=== PATIENT | male | born 1980 | race Caucasian/White ===

== ENCOUNTER 2017-01-01 02:00 | Observation (INO) | payer SELFPAY ==
[~2017-01-01] VITALS: Ht 182.9 cm; Wt 112.1 kg
[2017-01-01] VITALS (8 sets, daily range): BP systolic 128–160; BP diastolic 61–96; PULSE 74–104; RESP 16–24; O2SAT 95–98
[2017-01-01 02:46] LABS: BASOPHILS % (AUTO) 0.2 % (0-3); EOSINOPHILS % (AUTO) 2.4 % (0-5); MONOCYTES % (AUTO) 7.8 % (4-12); Mean Corpuscular Hemoglobin 27.1 pg (27.0-35.0); NEUTROPHILS % (AUTO) 76.3 % (40-74); Platelet Count 257 bil/L (150-400)
--- NOTE | 2017-01-01 02:48 | ED.REPORT ---
HPI-Facial Injury Date of Service Jan 01, 2017 ED Provider: Brian Holguin MD A 36 year old male with no pertinent medical history presents to the ED complaining of facial pain and swelling. The pt popped a pimple three days ago and the swelling began after this. Per pt's , the pt started a new job recently which has caused his hands to frequently be dirty. She is concerned that his face may be infected because of contact with his hands, and states that the swelling had worsened significantly when he returned from work yesterday. He became lethargic later in the evening. The pt denies any history of MRSA. Nursing Notes Stated Complaint: FACIAL INFECTION Chief Complaint: Skin Rash/Abscess Nursing Notes Reviewed: Yes Allergies: Coded Allergies: No Known Allergies (Unverified , 01/01/17) No Active Prescriptions or Reported Meds General Time Seen by Provider: 02:46 Chief Complaint Other (Facial swelling) Hx Obtained From: Patient, Spouse Arrived By: Walk-in Onset Occurred: 3 days ago Symptom Duration: Since onset Progression Since Onset: Gradually worsening Recent Healthcare: No recent doctor visit, No recent hospitalization Similar Sx Previous: No Past Medical History Past Medical History none reported Past Surgical History left thumb Smoking History Current Every Day Smoker Social History Drug Use: THC Other Social History: Good social support Ambulatory Status Independent Review of Systems Review of Systems Note: facial pain Constitutional: Reports: Lethargy, Denies: Fever Musculoskeletal: Denies: Back pain Skin: Reports Swelling Complete sys rev & neg: except as marked. Respiratory: Denies: Non-productive cough Cardiovascular: Denies: Chest pain GI: Denies: Abdominal pain Physical Exam Initial Vital Signs Vital Signs (First) Date Time Temp Pulse Resp B/P Pulse Ox O2 Delivery O2 Flow Rate FiO2 01/01/17 02:04 37.2 82 16 154/93 95 Room Air Initial VS: Reviewed Head / Eyes: Atraumatic, Normocephalic massively swollen upper lip with crusted, purulent lesion swollen upper fact and jaw ENT: Atraumatic, Airway patent, Mucous membranes moist Neck: Atraumatic, Supple, Full range of motion Neurologic: No motor deficits, No sensory deficits General/Constitutional: Awake lethargic but able to be aroused Respiratory / Chest: Atraumatic, Breath sounds NL, Breath sounds = bilat, No respiratory distress Cardiovascular: Heart rate NL, Regular rhythm, Heart sounds NL Skin: Warm, Dry Abdomen: Atraumatic, Soft, Non-tender Back: Atraumatic, Full range of motion Upper Extremity / MS: Atraumatic, Full range of motion Lower Extremity / Pelvis / MS: Atraumatic, Full range of motion Psychiatric: Mood NL Interpretation & Diagnostics Interpretation & Diagnostics: CT Maxillofacial: FINDINGS: Soft tissue swelling of the upper lip with timy 5-6 mm fluid collections which could represent small pus pockets. Lab Results Interpretation Result Diagram: 01/01/17 0230 01/01/17 0230 Test 01/01/17 02:30 01/01/17 04:25 White Blood Count 10.5th/mm3 (3.8-10.1) Red Blood Count 5.20mil/mm3 (4.40-5.80) Hemoglobin 14.1g/dL (13.8-17.2) Hematocrit 42.1% (41.0-50.0) Mean Corpuscular Volume 81.0fL (81-100) Mean Corpuscular Hemoglobin 27.1pg (27.0-35.0) Mean Corpuscular Hemoglobin Concent 33.5% (32.0-37.0) Red Cell Distribution Width 13.0% (12.3-15.4) Platelet Count 257bil/L (150-400) Neutrophils (%) (Auto) 76.3% (40-74) Lymphocytes (%) (Auto) 13.2% (14-46) Monocytes (%) (Auto) 7.8% (4-12) Eosinophils (%) (Auto) 2.4% (0-5) Basophils (%) (Auto) 0.2% (0-3) Erythrocyte Sedimentation Rate 29mm/hr (0-15) Hold Purple Top Tube Received (Received) Prothrombin Time 11.4sec (8.1-12.5) Prothromb Time International Ratio 1.06ratio Activated Partial Thromboplast Time 37.3sec (22.8-33.0) Hold Blue Top Tube Received (Received) Sodium Level 137mEq/L (134-144) Potassium Level 3.9mEq/L (3.5-5.2) Chloride Level 99mEq/L (97-108) Carbon Dioxide Level 25mmol/L (18-29) Blood Urea Nitrogen 8mg/dL (6-20) Creatinine 0.61mg/dL (0.76-1.27) Estimat Glomerular Filtration Rate 159mL/min (>59) Glucose Level 133mg/dL (60-99) Lactic Acid Level 0.8mmol/L (0.4-2.0) Calcium Level 9.5mg/dL (8.5-10.1) Phosphorus Level 4.0mg/dL (2.5-4.9) Magnesium Level 1.9mg/dL (1.6-2.6) Total Bilirubin 0.7mg/dL (0.0-1.2) Aspartate Amino Transf (AST/SGOT) 16U/L (0-50) Alanine Aminotransferase (ALT/SGPT) 17U/L (0-44) Alkaline Phosphatase 79U/L (25-150) Troponin T 0.010ug/L (0.0-0.011) Pro-B-Type Natriuretic Peptide 8.03pg/mL (0-86) Total Protein 7.4g/dL (6.4-8.4) Albumin 4.2g/dL (3.4-5.0) Lipase 17U/L (13-60) Procalcitonin 0.05ng/mL (0.00-0.08) Hold [place] Top Tube Received (Received) Hold [place] Top Tube Received (Received) ECG Interpretation ECG Interpretation: normal sinus rhythm with a rate of 81 Time: 03:15 Interpreted by: ED physician X-Ray Chest Interpretation Chest Xray Interpretation: no acute findings Interpretation / Wet Read by: Wet read ED physician CT Head Interpretation CONCLUSION: Normal except for some mucoperiosteal thickening in the right ethmoids. Re-Eval/Medical Decision Med Decision/Clinical Course Med Decision/Clinical Course: 36-year-old presents with rapidly progressive facial swelling after picking up pimple on his upper lip. Significant facial swelling but no airway compromise noted. CT of the soft tissue of his face shows very small fluid collections in the area of the upper lip, possibly small abscesses. He is begun with vancomycin, meropenem, and clindamycin. Admitted to medicine service. Source of Hx: Old records Re-Evaluation/Progress : Time of Eval: 02:46 Re-Evaluation/Progress Note: Pt informed of the need for admission during the initial interview. The pt understands and agrees with the plan. All questions are addressed at this time. Consultation : Referral / Consult Name: Lizzie Hinds DO Consulted With: Hospitalist Call Returned at: 04:37 Patient Case Coordinator: Agrees with eval, Agrees with plan, Accepts admit Note: Spoke with Dr. Hinds, hospitalist, regarding pt's case. Dr. Hinds agrees with the evaluation and agrees to admit the pt. Counseled Regarding: Diagnosis, Lab results, Need for admission Discharge & Departure Impression: Primary Impression: Facial cellulitis Additional Impression: Abscess Disposition: ADMITTED TO HOSPITAL Discharge Condition All VS Reviewed: Yes Condition: Stable Referrals: Sae Gilbert MD (PCP) Hung Attestation Portions of this note were transcribed by Ki Vasquez. I, Dr. Holguin personally performed the history, physical exam and medical decision-making; I reviewed and confirmed the accuracy of the information in the transcribed note. Signed by: Hung Grady, 01/01/2017 and 0328. copies to: Sae Gilbert MD, Christopher W MD Jan 01, 2017 02:48 KI VASQUEZ Jan 01, 2017 03:24
[2017-01-01] MEDS ORDERED: 0.9% Sodium Chloride 1,000 ML IV ONE (02:58)
[2017-01-01] MEDS ORDERED: Meropenem Inj 1,000 MG in 0.9% Sodium Chloride 100 ML IV ONE (03:00)
[2017-01-01] MEDS ORDERED: Vancomycin Dose per Pharmacist XX ONE (03:00)
[2017-01-01] MEDS ORDERED: Clindamycin Inj 900 MG in IV Premix 1 EACH IV ONE (03:00)
[2017-01-01 03:19] LABS: INR 1.06 ratio
[2017-01-01 03:33] LABS: TROPONIN T 0.01 ug/L (0.0-0.011)
[2017-01-01 03:44] LABS: Magnesium 1.9 mg/dL (1.6-2.6)
[2017-01-01] MEDS ORDERED: Vancomycin Inj 2,000 MG in 0.9% Sodium Chloride 500 ML IV ONE (04:00)
[2017-01-01] MEDS ORDERED: Polyethylene Glycol (PEG) 17 Gm Powder PO PRN (05:05)
[2017-01-01] MEDS ORDERED: Alum-Mag Hydrox-Simeth 30 mL Suspension PO PRN (05:05)
[2017-01-01] MEDS ORDERED: Ondansetron 2 mg/mL 2 mL Inj IVPUSH PRN (05:05)
--- NOTE | 2017-01-01 06:15 | NUR ---
Admit Note Pt. arrived on floor at 0545. Pt. is lethargic, but responds to voice. Pt's peripheral IV is intact and patent. Significant other by bedside.
--- NOTE | 2017-01-01 06:59 | PCM.HPMED ---
Subjective Date of Service Jan 01, 2017 Primary Provider: Admitting Physician: Lizzie Hinds DO Primary Care Physician: Sae Gilbert MD Attending Physician: Lizzie Hinds DO Admit Status: From the Emergency Department Chief Complaint: Facial swelling History of Present Illness: 36-year-old male with no significant past medical history presents to the emergency room with upper lip redness, swelling, and malaise. Patient reports having lesion on his lip 3 days ago, likely a pimple, it began swelling after that time and acutely worsened the day before admission. He began feeling chills and very hot in the emergency department. His temperature measured to be 37.2 at that time. He reports no associated symptoms or pain. Patient answering questions appropriately. 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 In the emergency department patient found to be very somnolent, CT head preliminary read shows normal with mucoperiosteal thickening in the right ethmoid, chest x-ray preliminary read shows no acute findings. CT maxillofacial shows soft tissue swelling of the upper lip with tiny 5-6 mm fluid collections which could represent small pus pocket. Official reads pending. Review of Systems: A comprehensive review of systems was conducted with the patient and found to be negative except as above in the History of Present Illness. Allergies Coded Allergies: No Known Allergies (Unverified , 01/01/17) Home Medications None PMH Thumb infection 2013 Surgical History Foreign body removal from thumb Family History Patient reports no family history of diabetes, heart disease, or cancer Social History Hx Alcohol Use: No Hx Substance Use: Yes ([facility]) Hx Tobacco Use: Yes Smoking Status: Current Every Day Smoker Living Arrangement: with Family Exam Vital Signs Vital Sign - Last Date Time Temp Pulse Resp B/P Pulse Ox O2 Delivery O2 Flow Rate FiO2 01/01/17 02:04 37.2 82 16 154/93 95 Room Air Exam General: Somnolent, no acute distress, well-developed, well-nourished, appropriately interactive HEENT: Erythematous swollen upper lip with white crusted lesion just left of midline. External ears without defect. Patient resistant to eye opening, thickened periorbital skin. Anicteric sclerae, moist conjunctivae, and no lid lag. Patient has difficulty opening mouth fully, moist mucosa identified. Neck: Supple with full range of motion. No lymphadenopathy or thyromegaly. Cardiovascular: Regular rate and rhythm with no murmurs, rubs, or gallops appreciated Pulmonary: Clear to auscultation bilaterally with no crackles, wheezes, or rhonchi. Normal respiratory effort with no use of accessory muscles. Abdomen: Bowel tones present. Soft, nontender, nondistended. No hepatosplenomegaly or masses appreciated. Extremities: No clubbing, cyanosis, edema, or lymphadenopathy appreciated. Skin: Hands start stand, Hyperkeratotic plaques and antecubital area Normal temperature, turgor, and texture; no rash, ulcers, or subcutaneous nodules appreciated. Neurological: Cranial nerves grossly intact. Normal muscle strength, tone, and bulk. No known gait impairment. Psychiatric: Answering questions appropriately once prompted. Normal mood and affect. Alert and oriented to person, place, and time. Lab and Diagnostics Result Diagram: 01/01/1722901/01/17229 Assessment & Plan 36-year-old male with no significant past medical history presents to the emergency room with upper lip redness, swelling, and malaise. Patient reports having lesion on his lip 3 days ago, likely a pimple, it began swelling after that time and acutely worsened the day before admission. 1. Acute facial cellulitis, present on admission, acute - Patient given vancomycin, clindamycin, meropenem and emergency department - Infectious disease consultation ordered, Day hospitalist to discuss case with Dr. Mendoza - Antibiotics every 24 dosing, will defer to infectious disease 2. Increased somnolence, present on admission, acute - Patient afebrile with a white blood cell count of 10.5, he does not meet SIRS criteria at this time - Blood cultures ordered - Continue to monitor 3. Hypertension, present on admission, chronicity unknown - Patient does not see a physician - Continue to monitor for hypertensive emergency - Depending on trend patient may need to be started on oral hypertensive medications Acetaminophen for mild pain when necessary. Bowel regimen Senna and MiraLAX PRN. Zofran when necessary for nausea and vomiting. DVT prophylaxis with sub cutaneous Lovenox Patient was admitted under inpatient status with expected length of stay greater than 2 midnights due to severity of presenting symptoms, risk of adverse event, and complexity of treatment plan. Pain Evaluation: Adequate Pain Control GI Prophylaxis: Not indicated VTE Prophylaxis: Sub-Q Enoxaparin Resuscitation Status: CPR: Attempt Resuscitation Attending Statement The patient was seen and examined together with house staff on 01/01/2017 and I agree with the history, exam and plan as outlined in the note above. Aislinn Bear DO Jan 01, 2017 05:24 Lizzie Hinds DO Jan 01, 2017 19:28
[2017-01-01 07:50] LABS: APPEARANCE,URINE HAZY (CLEAR,HAZY); COLOR,URINE STRAW (YELLOW); OCCULT BLOOD,URINE TRACE (NEGATIVE); UROBILINOGEN,URINE NORMAL (NORMAL)
[2017-01-01] MEDS ORDERED: Meropenem Inj 1,000 MG in IV Premix 1 EACH IV SCH (08:30)
[2017-01-01] MEDS: Vancomycin Dose per Pharmacist XX SCH (08:30)
[2017-01-01] MEDS ORDERED: Clindamycin Inj 900 MG in IV Premix 1 EACH IV SCH (08:30)
--- NOTE | 2017-01-01 10:09 | DRSVH ---
PROCEDURE: X-RAY CHEST ONE VIEW, PORTABLE ([id number]) INDICATIONS: facial cellulitis TECHNIQUE: One view of the chest was acquired. COMPARISON: Merged With [facility], , CHEST 1VW (PORTABLE), 07/20/2010, 21:47. FINDINGS: Surgical changes and devices: None. Lungs and pleura: No pleural effusions or pneumothorax. Lungs are clear. Mediastinum: Mediastinal contours appear normal. Heart size is normal. Bones and chest wall: No suspicious bony lesions. Overlying soft tissues appear unremarkable. IMPRESSION: No acute cardiopulmonary disease. Dictated by: Vega Sandoval [facility] Interpreted: Linda Bermudez MD on 01/01/2017 at 10:08 Transcribed by: JESSICA on 01/01/2017 at 10:08 Approved by: Linda Bermudez MD, PhD on 01/01/2017 at 16:57
--- NOTE | 2017-01-01 10:34 | DRSVH ---
PROCEDURE: CT BRAIN WITHOUT CONTRAST ([id number]) INDICATIONS: abscess upper lip, mid face TECHNIQUE: Noncontrast 4.5 mm thick angled axial sections acquired from the foramen magnum to the vertex, with c oronal reformats. COMPARISON: [facility], CT, CT FACE W CON, 01/01/2017, 3:33. FINDINGS: Image quality: Excellent. CSF spaces: Basal cisterns are patent. No extra-axial fluid collections. Ventricles are normal in size and shape. Brain: No midline shift. No intracranial masses or hemorrhage. White-white matter interface is norm al. Skull and face: Calvarium and visualized facial bones are intact, without suspicious lesions. Sinuses: Visualized sinuses demonstrate minimal ethmoid mucosal thickening. IMPRESSION: 1. No acute intracranial process. Dictated by: Idalmis Ward M.D. on 01/01/2017 at 10:31 Approved by: Idalmis Ward M.D. on 01/01/2017 at 10:32
--- NOTE | 2017-01-01 10:38 | DRSVH ---
PROCEDURE: CT FACE WITH CONTRAST ([id number]) INDICATIONS: abscess upper lip, mid face TECHNIQUE: After the administration of intravenous contrast, 3.0 mm axial sections acquired from the mid-neck to the frontal sinuses, with coronal reformatting. For radiation dose reduction, the following was use d: automated exposure control. COMPARISON: None. FINDINGS: Image quality: Excellent. Soft tissues: There is edema of the upper lip with several foci of low attenuation, the largest measu ring approximately 5 mm. There are partially visualized enlarged lymph nodes within the Level IB sapna on. Vascular: Visualized vascular structures appear patent throughout. Bony vascular foramina and canal s appear normal. Bones: Facial bones appear intact, without fractures, erosions, or destruction. Visualized portions of the skull base and auditory canals also appear normal. Sinuses: Paranasal sinuses are aerated without fluid levels, mucosal thickening, or mucoceles. Mast oid air cells are aerated. IMPRESSION: 1. Edema of the upper lip a small low attenuation foci above, as well as enlarged lymph nodes. Appear ances are suggestive of infection/inflammation, with low attenuation foci likely employment representative of s mall areas of infected fluid and/or abscess. Dictated by: Idalmis Ward M.D. on 01/01/2017 at 10:32 Approved by: Idalmis Ward M.D. on 01/01/2017 at 10:36
[2017-01-01] MEDS: cefTRIAXone 2,000 mg/D5W 50 mL IV Minibag Plus IV SCH ×2 (12:26)
--- NOTE | 2017-01-01 14:15 | PCM.CONPHA ---
Subjective Facial swelling Reason for Pharmacy Consult: Vancomycin Dosing Objective Vital Signs Date Time Temp Pulse Resp B/P Pulse Ox O2 Delivery O2 Flow Rate FiO2 01/01/17 10:12 37.0 83 19 142/83 97 Room Air 01/01/17 05:54 36.7 84 18 160/96 97 Room Air 01/01/17 05:30 104 19 128/61 97 Room Air 01/01/17 03:30 91 18 143/92 97 Room Air 01/01/17 03:00 83 24 141/96 98 Room Air 01/01/17 02:04 37.2 82 16 154/93 95 Room Air Weight (Kilograms): 112.100 Height (Feet): 6 Height (Inches): 0.00 Test 01/01/17 02:30 01/01/17 04:25 01/01/17 07:08 White Blood Count 10.5th/mm3 (3.8-10.1) Red Blood Count 5.20mil/mm3 (4.40-5.80) Hemoglobin 14.1g/dL (13.8-17.2) Hematocrit 42.1% (41.0-50.0) Mean Corpuscular Volume 81.0fL (81-100) Mean Corpuscular Hemoglobin 27.1pg (27.0-35.0) Mean Corpuscular Hemoglobin Concent 33.5% (32.0-37.0) Red Cell Distribution Width 13.0% (12.3-15.4) Platelet Count 257bil/L (150-400) Neutrophils (%) (Auto) 76.3% (40-74) Lymphocytes (%) (Auto) 13.2% (14-46) Monocytes (%) (Auto) 7.8% (4-12) Eosinophils (%) (Auto) 2.4% (0-5) Basophils (%) (Auto) 0.2% (0-3) Erythrocyte Sedimentation Rate 29mm/hr (0-15) Hold Purple Top Tube Received (Received) Prothrombin Time 11.4sec (8.1-12.5) Prothromb Time International Ratio 1.06ratio Activated Partial Thromboplast Time 37.3sec (22.8-33.0) Hold Blue Top Tube Received (Received) Sodium Level 137mEq/L (134-144) Potassium Level 3.9mEq/L (3.5-5.2) Chloride Level 99mEq/L (97-108) Carbon Dioxide Level 25mmol/L (18-29) Blood Urea Nitrogen 8mg/dL (6-20) Creatinine 0.61mg/dL (0.76-1.27) Estimat Glomerular Filtration Rate 159mL/min (>59) Glucose Level 133mg/dL (60-99) Lactic Acid Level 0.8mmol/L (0.4-2.0) Calcium Level 9.5mg/dL (8.5-10.1) Phosphorus Level 4.0mg/dL (2.5-4.9) Magnesium Level 1.9mg/dL (1.6-2.6) Total Bilirubin 0.7mg/dL (0.0-1.2) Aspartate Amino Transf (AST/SGOT) 16U/L (0-50) Alanine Aminotransferase (ALT/SGPT) 17U/L (0-44) Alkaline Phosphatase 79U/L (25-150) Troponin T 0.010ug/L (0.0-0.011) Pro-B-Type Natriuretic Peptide 8.03pg/mL (0-86) Total Protein 7.4g/dL (6.4-8.4) Albumin 4.2g/dL (3.4-5.0) Lipase 17U/L (13-60) Procalcitonin 0.05ng/mL (0.00-0.08) Hold [place] Top Tube Received (Received) Hold [place] Top Tube Received (Received) Urine Color Straw (YELLOW) Urine Appearance Hazy (CLEAR,HAZY) Urine pH 7.0 (5.0-8.0) Urine Specific [place] 1.005 (1.003-1.035) Urine Protein Negativemg/dL (NEG,TRACE) Urine Glucose (UA) Negativemg/dL (NEGATIVE) Urine Ketones Negativemg/dL (NEGATIVE) Urine Occult Blood Trace (NEGATIVE) Urine Nitrite Negative (NEGATIVE) Urine Bilirubin Negative (NEGATIVE) Urine Urobilinogen Normalmg/dL (NORMAL) Urine Leukocyte Esterase Negative (NEGATIVE) Urine RBC 0-2/hpf (0-2) Urine WBC 0-5/hpf (0-5) Urine Epithelial Cells Occasional/hpf (NONE-MOD) Urine Crystals None seen (NONE SEEN) Urine Bacteria None/hpf (NONE-FEW) Urine Hyaline Casts None/lpf (NONE) Urine Granular Casts None seen (NONE SEEN) Urine Waxy Casts None seen (NONE SEEN) Urine Red Blood Cell Casts None seen (NONE SEEN) Urine White Blood Cell Casts None seen (NONE SEEN) Urine Mucus None seen (None Seen) Urine Trichomonas None seen (NONE SEEN) Urine Yeast None (NONE SEEN) Urinalysis Comment None Urine Culture Reflexed Not indicated Assessment/Plan Assessment/Plan VANCOMYCIN DOSING PER PHARMACY Indication: facial cellulitis Trough goal: 10-15 Wt: 112.1 kg Labs: SCr: 0.61 CrCl: 231 WBC: 10.5 Additional abx: currently rocephin, but received one dose of meropenem and clindamycin in the ED Culture info: pending P: Was given loading dose of vancomycin IV 2000 mg once in the ED on 01/01 @0600 Will [place] 1250 mg Q8H beginning on 01/01 @1400 Will draw trough prior to 4th dose on 01/02 @ 0500 Pharmacy will continue to follow. Haleigh Kwon PharmD Jan 01, 2017 14:15
--- NOTE | 2017-01-01 14:38 | CONS ---
[address] [address] CONSULTATION REPORT PATIENT: JENNIFFER CHATMAN : 1980 MR#: [id number] ADMIT: 01/01/2017 JOB ID: [id number] DATE OF SERVICE: 01/01/2017 TIME: 12:30 p.m., room 1027, [facility]. HISTORY OF PRESENT ILLNESS: This is a 36-year-old gentleman who was admitted last night to the hospital with cellulitis of the upper lip. We reviewed his CAT scan and there is cellulitis of the upper lip and there is not one definite abscess cavity that could at this moment be drained. In talking with his lady friend, she feels that he is improved today after doses of antibiotics compared to last night. History otherwise as per hospitalist on EMR. OBJECTIVE: Nose and throat examination is unremarkable except for large septal perforation, deviated septum. The upper lip is markedly swollen, edematous with a crusting external lesion on the left upper lip. It is too tender to actually touch as the patient could not tolerate any palpation of his upper lip. ASSESSMENT: Cellulitis, possibly early multiple small abscess formation upper lobe. PLAN: Continue the antibiotics as already ordered. Hot Tristanian towels might be helpful. A [place] washcloth might be helpful on the upper lip. Observe and wait for resolution. If the cellulitis surrounding the area goes down and a mass appears which needs drainage, give us a call and we will see if that can be accomplished. Otherwise medical therapy for now and observation.
[2017-01-01] MEDS: Vancomycin Inj 1,250 MG in 0.9% Sodium Chloride 250 ML IV SCH ×2 (14:56→20:48)
--- NOTE | 2017-01-01 15:00 | NUR ---
Activity/Pain Pt answers questions by nodding head yes and no. Pt says it is uncomfortable to talk but states that he has no pain. Pt denies any pain medication. Pt educated about the pain scale of 1-10. Pt nodded his head in understanding. When asked pt if he would like to take a shower he declined. Will encourage pt to take a shower. Care continues.
--- NOTE | 2017-01-01 16:00 | NUR ---
Social Work- Brief Note Data: Pt is a 36 year old male admitted 01/01/17 for facial cellulitis per H&P. Pt has no insurance, SW contacted [facility] ED to follow pt's case. Pt's PCP is Sae Gilbert MD. SW met with pt and SO Olivia Maher [phone] at bedside to discuss discharge plan, SW role explained. Pt resides in [place] with his SO where he remains independent with his ADLs. Pt uses no DME and drives. Pt has no DPOA on file, stated he is not interested in completing one. Pt to discharge home with SO to transport via POV. No anticipated discharge needs. SW will continue to follow if needs arise. Assessment: Pt who is independent [place]. Plan: Pt to discharge home with SO to transport via POV. No anticipated discharge needs. SW will continue to follow if needs arise. ROSE Cifuentes
--- NOTE | 2017-01-01 17:07 | NUR ---
Visitors Pt would like visitors to check in with the assistant front office manager. Pt signed a release of information to specific people. Information is NOT to be given to the Janett. Pt also asked to leave and to not visit. Behavior contract is signed and in the chart, as brought up his previous IVDU. Care continues.
[2017-01-01] MEDS: HYDROcodone-APAP 5-325 mg Tablet PO PRN (20:51)
[2017-01-02 01:27] VITALS: BP 148/85; PULSE 65; RESP 20; O2SAT 97
--- NOTE | 2017-01-02 03:05 | NUR ---
VISITORS; no visitors seen except for his girlfriend. Pt slept most of the night after norco one tab given for facial pain.
[2017-01-02] MEDS ORDERED: Vancomycin Serum Trough XX ONE (05:00)
--- NOTE | 2017-01-02 06:12 | NUR ---
VANCO; pharmacist requested 0600 vanco not be hung until vanco trough results obtained.
[2017-01-02 06:29] VITALS: BP 144/88; PULSE 58; RESP 20; O2SAT 99
[2017-01-02] MEDS: Vancomycin Dose per Pharmacist XX SCH (07:52)
[2017-01-02] MEDS: Vancomycin Inj 1,250 MG in 0.9% Sodium Chloride 250 ML IV SCH (07:52)
--- NOTE | 2017-01-02 10:29 | PCM.PNMED ---
Subjective Date of Service Jan 02, 2017 Subjective upper lip swelling and facial swelling improving.upper lip small pus opened spontaneously and drained yellowish pus,now non fluctuant.afebrile. Exam Vital Signs Vital Sign - Last Date Time Temp Pulse Resp B/P Pulse Ox O2 Delivery O2 Flow Rate FiO2 01/02/17 06:29 37.1 58 20 144/88 99 Room Air Intake and Output 01/01/17 01/01/17 01/02/17 Cumulative From/Thru 14:59 22:59 06:59 01/01/17 02:04 - 01/02/17 03:58 Intake Total 1959 ml 100 ml 3059 ml Output Total 700 ml 700 ml Balance 1259 ml 100 ml 2359 ml Intake Oral 1022 ml 1022 ml IV Total 937 ml 100 ml 2037 ml Output Urine Total 700 ml 700 ml # Voids 2 2 Exam General:no acute distress, well-developed, well-nourished, appropriately interactive HEENT: Erythematous swollen upper lip with white crusted lesion just left of midline. thickened periorbital skin. Neck: Supple with full range of motion. No lymphadenopathy or thyromegaly. Cardiovascular: Regular rate and rhythm with no murmurs, rubs, or gallops appreciated Pulmonary: Clear to auscultation bilaterally with no crackles, wheezes, or rhonchi. Normal respiratory effort with no use of accessory muscles. Abdomen: Bowel tones present. Soft, nontender, nondistended. No hepatosplenomegaly or masses appreciated. Extremities: No clubbing, cyanosis, edema, or lymphadenopathy appreciated. Skin: Hands start stand, Hyperkeratotic plaques and antecubital area Normal temperature, turgor, and texture; no rash, ulcers, or subcutaneous nodules appreciated. Neurological: Cranial nerves grossly intact. Normal muscle strength, tone, and bulk. No known gait impairment. Psychiatric:Alert and oriented to person, place, and time. IVs and Medications Medications Reviewed: Medications were reviewed in detail Lab and Diagnostics Result Diagram: 01/01/1722901/01/17229 X-Rays, CTs and MRIs PROCEDURE: CT FACE WITH CONTRAST ([id number]) INDICATIONS: abscess upper lip, mid face IMPRESSION: 1. Edema of the upper lip a small low attenuation foci above, as well as enlarged lymph nodes. Appearances are suggestive of infection/inflammation, with low attenuation foci likely benefits representative of small areas of infected fluid and/or abscess. Dictated by: Idalmis Ward M.D. on 01/01/2017 at 10:32 Assessment & Plan 36-year-old male with no significant past medical history presents to the emergency room with upper lip redness, swelling, and malaise. Patient reports having lesion on his lip 3 days ago, likely a pimple, it began swelling after that time and acutely worsened the day before admission. 1. Acute facial cellulitis with small upper lip abscess , present on admission , acute - Patient given vancomycin, clindamycin, meropenem and emergency department - on ceftriaxone and vancomycin now - improving now -ENT Dr Maria has seen him,no need for surgical intervention 2. Hypertension, present on admission, chronicity unknown - Patient does not see a physician - Continue to monitor for hypertensive emergency - Depending on trend patient may need to be started on oral hypertensive medications Acetaminophen for mild pain when necessary. Bowel regimen Senna and MiraLAX PRN. Zofran when necessary for nausea and vomiting. DVT prophylaxis with sub cutaneous Lovenox disposition:discharge tomorrow on po antibiotics if continues to improve GI Prophylaxis: Not indicated VTE Prophylaxis: Sub-Q Enoxaparin Resuscitation Status: CPR: Attempt Resuscitation Stepan Hassan MD Jan 02, 2017 10:29
[2017-01-02 10:39] VITALS: BP 133/67; PULSE 65; RESP 16; O2SAT 97
--- NOTE | 2017-01-02 10:43 | NUR ---
Social Work-Readiness for Discharge Data: EMR reviewed. Pt is on day 1 of hospitalization for facial cellulitis per H&P. Pt is not medically stable, anticipate discharge in 1-2 days. Pt to discharge on PO Abx. Pt to discharge home with SO to transport via POV. No anticipated discharge needs. SW will continue to follow if needs arise. Assessment: [place] Plan: Pt to discharge home with SO to transport via POV. No anticipated discharge needs. SW will continue to follow if needs arise. ROSE Cifuentes
[2017-01-02] MEDS: cefTRIAXone 2,000 mg/D5W 50 mL IV Minibag Plus IV SCH ×2 (12:31)
[2017-01-02] MEDS: HYDROcodone-APAP 5-325 mg Tablet PO PRN (12:36)
[2017-01-02 14:52] VITALS: BP 146/86; PULSE 81; RESP 16; O2SAT 98
--- NOTE | 2017-01-02 15:27 | PCM.DIMED ---
Discharge Instructions Date of Service Jan 02, 2017 Dates of Hospitalization Jan 01, 2017 at 04:43 Discharge Diagnosis Discharge Diagnosis 1. Acute facial cellulitis with small upper lip abscess , present on admission , acute 2. Hypertension, present on admission, chronicity unknown Diet No restrictions Activity No restrictions Call your provider Fever or Chills, Shortness of breath, Bleeding, Chest pain, Vomitting, Excessive diarrhea, Weakness (unilateral) Patient Instructions You were hospitalized due to facial cellulitis with upper lip abscess. You had been treated with iv antibiotics. Please continue Augmentin and doxycycline for 5 more days as prescribed. Please continue hot towel compress on swelling. Please follow-up with with PCP for high blood pressure. Follow-up plan Please follow-up with PCP in 1-2 week. Follow-up Provider: Sae Gilbert MD Follow-up with PCP in: 1 week Stepan Hassan MD Jan 02, 2017 15:27
[2017-01-02] MEDS ORDERED: AMOX-366 PO (15:29)
[2017-01-02] MEDS ORDERED: DOXY-232 PO (15:29)
[2017-01-02] MEDS ORDERED: OXYC1TAB24 PO (15:29)
--- NOTE | 2017-01-02 15:34 | PCM.DC.MED ---
Discharge Summary Date of Service Jan 02, 2017 Dates of Hospitalization Date of Hospital Admission Jan 01, 2017 at 04:43 Date of Discharge: Jan 02, 2017 Providers: Admitting Physician: Lizzie Hinds DO Primary Care Physician: Sae Gilbert MD Attending Physician: Lizzie Hinds DO Diagnosis at Time of Discharge Diagnosis at Time of Discharge 1. Acute facial cellulitis with small upper lip abscess , present on admission , acute 2. Hypertension, present on admission, chronicity unknown Consultations ENT Dr Maria Procedures XRay, CTs & MRIs PROCEDURE: CT FACE WITH CONTRAST ([id number]) INDICATIONS: abscess upper lip, mid face IMPRESSION: 1. Edema of the upper lip a small low attenuation foci above, as well as enlarged lymph nodes. 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 Dictated by: Idalmis Ward M.D. on 01/01/2017 at 10:32 Brief History per H&P by Dr Hinds on 01/01/17 36-year-old male with no significant past medical history presents to the emergency room with upper lip redness, swelling, and malaise. Patient reports having lesion on his lip 3 days ago, likely a pimple, it began swelling after that time and acutely worsened the day before admission. He began feeling chills and very hot in the emergency department. His temperature measured to be 37.2 at that time. He reports no associated symptoms or pain. Patient answering questions appropriately. 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 In the emergency department patient found to be very somnolent, CT head preliminary read shows normal with mucoperiosteal thickening in the right ethmoid, chest x-ray preliminary read shows no acute findings. CT maxillofacial shows soft tissue swelling of the upper lip with tiny 5-6 mm fluid collections which could represent small pus pocket. Official reads pending. Hospital Course 36-year-old male with no significant past medical history presents to the emergency room with upper lip redness, swelling, and malaise. Patient reports having lesion on his lip 3 days ago, likely a pimple, it began swelling after that time and acutely worsened the day before admission. 1. Acute facial cellulitis with small upper lip abscess , present on admission , acute - Patient given vancomycin, clindamycin, meropenem and emergency department - on ceftriaxone and vancomycin now. upper lip abscess growing staph aureus. Patient insists to go home. Called microbiology lab to see if it is MSSA or MRSA. No one to read culture results. will discharge on Augmentin and doxycycline - improving now -ENT Dr Maria has seen him,no need for surgical intervention -Advised to use hot towel on swelling 2. Hypertension, present on admission, chronicity unknown - Patient does not see a physiciany Advised to follow outpatient disposition:discharge home on Augmentin and doxycycline Exam Vital Signs (Last) Date Time Temp Pulse Resp B/P Pulse Ox O2 Delivery O2 Flow Rate FiO2 01/02/17 14:52 36.2 81 16 146/86 98 Room Air Exam General:no acute distress, well-developed, well-nourished, appropriately interactive HEENT: Erythematous swollen upper lip with white crusted lesion just left of midline. thickened periorbital skin. Neck: Supple with full range of motion. No lymphadenopathy or thyromegaly. Cardiovascular: Regular rate and rhythm with no murmurs, rubs, or gallops appreciated Pulmonary: Clear to auscultation bilaterally with no crackles, wheezes, or rhonchi. Normal respiratory effort with no use of accessory muscles. Abdomen: Bowel tones present. Soft, nontender, nondistended. No hepatosplenomegaly or masses appreciated. Extremities: No clubbing, cyanosis, edema, or lymphadenopathy appreciated. Skin: Hands start stand, Hyperkeratotic plaques and antecubital area Normal temperature, turgor, and texture; no rash, ulcers, or subcutaneous nodules appreciated. Neurological: Cranial nerves grossly intact. Normal muscle strength, tone, and bulk. No known gait impairment. Psychiatric:Alert and oriented to person, place, and time Test 01/01/17 02:30 01/01/17 04:25 01/01/17 07:08 01/02/17 06:10 White Blood Count 10.5th/mm3 (3.8-10.1) Red Blood Count 5.20mil/mm3 (4.40-5.80) Hemoglobin 14.1g/dL (13.8-17.2) Hematocrit 42.1% (41.0-50.0) Mean Corpuscular Volume 81.0fL (81-100) Mean Corpuscular Hemoglobin 27.1pg (27.0-35.0) Mean Corpuscular Hemoglobin Concent 33.5% (32.0-37.0) Red Cell Distribution Width 13.0% (12.3-15.4) Platelet Count 257bil/L (150-400) Neutrophils (%) (Auto) 76.3% (40-74) Lymphocytes (%) (Auto) 13.2% (14-46) Monocytes (%) (Auto) 7.8% (4-12) Eosinophils (%) (Auto) 2.4% (0-5) Basophils (%) (Auto) 0.2% (0-3) Erythrocyte Sedimentation Rate 29mm/hr (0-15) Hold Purple Top Tube Received (Received) Prothrombin Time 11.4sec (8.1-12.5) Prothromb Time International Ratio 1.06ratio Activated Partial Thromboplast Time 37.3sec (22.8-33.0) Hold Blue Top Tube Received (Received) Sodium Level 137mEq/L (134-144) Potassium Level 3.9mEq/L (3.5-5.2) Chloride Level 99mEq/L (97-108) Carbon Dioxide Level 25mmol/L (18-29) Blood Urea Nitrogen 8mg/dL (6-20) Estimat Glomerular Filtration Rate 159mL/min (>59) Glucose Level 133mg/dL (60-99) Lactic Acid Level 0.8mmol/L (0.4-2.0) Calcium Level 9.5mg/dL (8.5-10.1) Phosphorus Level 4.0mg/dL (2.5-4.9) Magnesium Level 1.9mg/dL (1.6-2.6) Total Bilirubin 0.7mg/dL (0.0-1.2) Aspartate Amino Transf (AST/SGOT) 16U/L (0-50) Alanine Aminotransferase (ALT/SGPT) 17U/L (0-44) Alkaline Phosphatase 79U/L (25-150) Troponin T 0.010ug/L (0.0-0.011) Pro-B-Type Natriuretic Peptide 8.03pg/mL (0-86) Total Protein 7.4g/dL (6.4-8.4) Albumin 4.2g/dL (3.4-5.0) Lipase 17U/L (13-60) Procalcitonin 0.05ng/mL (0.00-0.08) Hold [place] Top Tube Received (Received) Hold [place] Top Tube Received (Received) Urine Color Straw (YELLOW) Urine Appearance Hazy (CLEAR,HAZY) Urine pH 7.0 (5.0-8.0) Urine Specific [place] 1.005 (1.003-1.035) Urine Protein Negativemg/dL (NEG,TRACE) Urine Glucose (UA) Negativemg/dL (NEGATIVE) Urine Ketones Negativemg/dL (NEGATIVE) Urine Occult Blood Trace (NEGATIVE) Urine Nitrite Negative (NEGATIVE) Urine Bilirubin Negative (NEGATIVE) Urine Urobilinogen Normalmg/dL (NORMAL) Urine Leukocyte Esterase Negative (NEGATIVE) Urine RBC 0-2/hpf (0-2) Urine WBC 0-5/hpf (0-5) Urine Epithelial Cells Occasional/hpf (NONE-MOD) Urine Crystals None seen (NONE SEEN) Urine Bacteria None/hpf (NONE-FEW) Urine Hyaline Casts None/lpf (NONE) Urine Granular Casts None seen (NONE SEEN) Urine Waxy Casts None seen (NONE SEEN) Urine Red Blood Cell Casts None seen (NONE SEEN) Urine White Blood Cell Casts None seen (NONE SEEN) Urine Mucus None seen (None Seen) Urine Trichomonas None seen (NONE SEEN) Urine Yeast None (NONE SEEN) Urinalysis Comment None Urine Culture Reflexed Not indicated Creatinine 0.59mg/dL (0.76-1.27) Vancomycin Level Trough 5.8mcg/mL Discharge Medications Discharge Medications Amoxicillin/Clav K 875-125 mg (Augmentin 875-125 mg) 1 Each Tablet 1 TABLET PO BID Prescribed by: DALE BRODERICK MD Doxycycline Monohyd (Doxycycline Monohyd) 100 Mg Tablet 100 MG PO BID Prescribed by: DALE BRODERICK MD As needed oxyCODONE-Acetaminophen 5-325 mg (oxyCODONE-Acetaminophen 5-325 mg) 1 Each Tablet 1 TAB PO Q6H PRN PRN For Pain Prescribed by: DALE BRODERICK MD Followup Plan Disposition: Home Follow-up plan Please follow-up with PCP in 1-2 week. Discharge Diet: No restrictions Discharge Activity: No restrictions Patient Instructions You were hospitalized due to facial cellulitis with upper lip abscess. You had been treated with iv antibiotics. Please continue Augmentin and doxycycline for 5 more days as prescribed. Please continue hot towel compress on swelling. Please follow-up with with PCP for high blood pressure. Follow-up Provider: Sae Gilbert MD Follow-up with PCP in: 1 week Time spent 35 minutes coordinating discharge and trying to get final culture results. copies to: Sae Gilbert MD, Melaku MD Jan 02, 2017 15:33
--- NOTE | 2017-01-02 15:38 | NUR ---
Social Work-Discharge Data: EMR reviewed. Pt is on day 1 of hospitalization for facial cellulitis per H&P. Pt to discharge today. Pt to discharge on PO Abx. Pt to discharge home with SO to transport via POV. No discharge needs. Assessment: [place] Plan: Pt to discharge home with SO to transport via POV. No discharge needs. ROSE Cifuentes
[2017-01-02] MEDS ORDERED: Vancomycin Inj 1,500 MG in 0.9% Sodium Chloride 500 ML IV SCH (16:00)
--- NOTE | 2017-01-02 16:34 | NUR ---
Discharge Pt d/c'd from room 1027 at 1634 home. Pt walked home to house, he [place] close to the hospital. IV d/c'd intact. Pt has not items in the safe or the pharmacy. All discharge information and instructions done with pt. All questions answered. Hard copy of RX with the pt. Pt to f/u with pcp in 1 week. Pt to schedule apt.
[2017-01-03] MEDS ORDERED: Vancomycin Serum Trough XX ONE (15:30)
== END 2017-01-02 16:35 | disposition home or self-care (01) ==
LOC: SED 02:00 → OSC 04:43 → INTOOBSV 04:43 → OSC 05:40
PROVIDERS: ADMIT Internal Medicine; ATTEND Internal Medicine
DX: K13.0 Diseases of lips (principal); I10 Essential (primary) hypertension; R40.0 Somnolence; F17.210 Nicotine dependence, cigarettes, uncomplicated; F12.90 Cannabis use, unspecified, uncomplicated
CPT/HCPCS: 36415; 70450; 70487; 71010; 80053; 80202; 81000; 82565; 83605; 83690; 83735; 83880; 84100; 84145; 84484; 85025; 85610; 85651; 85730; 87040; 87070; 87186; 87205; 93005; 96361; 96365; 96366; 96367; 96376; 99285; G0378; J0696; J1650; J2185; J3370; J7030; J7040; J7050; Q9967